=== PATIENT | female | born 1965 | race Caucasian/White ===

== ENCOUNTER → 2017-04-13 | Outpatient (CLI) | payer BC ==
[~2017-04-13] MED LIST: ASPI325T92 PO; ESZO3TAB28 PO; LEVE100020 PO; LEVO50TA PO; LOSA50TA6 PO; OMEP40CA6 PO; PROP40TA PO
== END ==
LOC: CFH 12:53
PROVIDERS: ATTEND Internal Medicine Cardiovascular Disease
DX: I11.9 Hypertensive heart disease without heart failure (principal)
CPT/HCPCS: 93306

== ENCOUNTER → 2017-08-14 | Outpatient (CLI) | payer BC ==
[~2017-08-14] MED LIST changes: +REGADENOSON 0.4 MG/5 ML SYRINGE ONE
== END | disposition home or self-care (01) ==
LOC: CFH 08:08
PROVIDERS: ATTEND Internal Medicine Cardiovascular Disease
DX: R07.89 Other chest pain (principal)
CPT/HCPCS: 78452; 93017; A9502; J2785

== ENCOUNTER 2018-10-28 08:29 | Outpatient (CLI) | payer BC | END 2018-10-28 23:59 | disposition home or self-care (01) | LOC: LAB 08:29 | PROVIDERS: ATTEND Family Medicine | DX: Z13.220 Encounter for screening for lipoid disorders (principal); Z13.1 Encounter for screening for diabetes mellitus; E03.9 Hypothyroidism, unspecified | CPT/HCPCS: 36415; 80053; 80061; 83036; 84439; 84443; 84481 ==

== ENCOUNTER → 2020-05-16 | Outpatient (CLI) | payer BC ==
[~2020-05-16] MED LIST changes: +ASPI81TA45 PO; +CHOL10003 PO; +LACO100T PO; +LEVA15HF4 INH; +LOSA50TA14 PO; -LOSA50TA6 PO; +MULT-449 PO; +OMEP40CA42 PO; -OMEP40CA6 PO; -REGADENOSON 0.4 MG/5 ML SYRINGE ONE; +SERT100T PO
[2020-05-16 16:06] LABS: ALANINE AMINOTRANSFERASE 43 U/L (12-78); ALBUMIN 4.1 g/dL (3.4-5.0); ANION GAP 7 mmol/L (5-15); CALCIUM 8.9 mg/dL (8.5-10.1); CHLORIDE 110 mmol/L (98-107); CREATININE 0.86 mg/dL (0.55-1.02)
[2020-05-16 16:09] LABS: ALKALINE PHOSPHATASE 95 U/L (45-117); BILIRUBIN,TOTAL 0.5 mg/dL (0.2-1.0); TOTAL PROTEIN 7.4 g/dL (6.4-8.2)
== END | disposition home or self-care (01) ==
LOC: STAR 12:18
PROVIDERS: ATTEND Surgery
DX: Z01.812 Encounter for preprocedural laboratory examination (principal); D48.1 Neoplasm of uncertain behavior of connective and other soft tissue
CPT/HCPCS: 36415; 80053

== ENCOUNTER 2020-05-24 06:07 | Day surgery (SDC) | payer BC ==
[~2020-05-24] VITALS: Ht 162.6 cm; Wt 91.6 kg
[2020-05-24] MEDS ORDERED: LACTATED RINGERS 1,000 ML IV SCH (06:30)
[2020-05-24] MEDS ORDERED: CHLORHEXIDINE 15 ML UDC MM ONE (06:30)
[2020-05-24] MEDS ORDERED: LIDOCAINE-MPF 1%, 2ML INFIL ONE (06:30)
[2020-05-24] MEDS ORDERED: BUPIVACAINE/PF-EPI 0.5% 1:200K ONE (06:45)
[2020-05-24 06:46] VITALS: BP 123/84
[2020-05-24] MEDS ORDERED: MIDAZOLAM 1 MG/ML, 2ML ONE (07:43)
[2020-05-24] MEDS ORDERED: FENTANYL PF 250 MCG/5ML ONE (07:43)
[2020-05-24] MEDS ORDERED: SCOPOLAMINE 1MG PATCH TD ONE (07:57)
[2020-05-24] MEDS ORDERED: PROPOFOL 10 MG/ML, 50ML ONE (07:58)
[2020-05-24] MEDS ORDERED: METOCLOPRAMIDE 5 MG/ML, 2ML ONE (07:58)
[2020-05-24] MEDS ORDERED: ONDANSETRON 2MG/ML, 2ML ONE (07:58)
[2020-05-24] MEDS ORDERED: CEFAZOLIN 1,000 MG ONE (07:58)
[2020-05-24] MEDS ORDERED: DEXAMETHASONE 4 MG/ML, 1ML ONE (07:58)
[2020-05-24] MEDS ORDERED: METHOCARBAMOL 1,000 MG in DEXTROSE 5% 100 ML IV PRN (09:00)
[2020-05-24] MEDS ORDERED: EPHEDRINE 50 MG/ML, 1ML IVPush PRN (09:00)
[2020-05-24] MEDS ORDERED: ACETAMINOPHEN 325 MG TABLET PO PRN (09:00)
[2020-05-24] MEDS ORDERED: OXYcodone 5 MG/5 ML ORAL.SOL UDC PO PRN (09:00)
[2020-05-24] MEDS ORDERED: PROMETHAZINE 25 MG/ML, 1ML IVPush PRN (09:00)
[2020-05-24] MEDS ORDERED: FENTANYL PF 100 MCG/2ML IV PRN (09:00)
[2020-05-24] MEDS ORDERED: hydrALAzine 20 MG/ML, 1ML IV PRN (09:00)
[2020-05-24] MEDS ORDERED: LABETALOL 5MG/ML, 20ML IV PRN (09:00)
[2020-05-24] MEDS ORDERED: MEPERIDINE/PF 25MG/0.5ML IVPush PRN (09:00)
[2020-05-24] MEDS ORDERED: HYDROmorphone 1 MG/ML, 1ML INJ IVPush PRN (09:00)
[2020-05-24] MEDS ORDERED: LORazepam 2 MG/ML, 1ML IVPush PRN (09:00)
[2020-05-24] MEDS ORDERED: ONDANSETRON 2MG/ML, 2ML IVPush PRN (09:00)
[2020-05-24] MEDS ORDERED: ONDA4TAB13 SL (09:08)
[2020-05-24] MEDS ORDERED: HYDR-1067 PO (09:08)
== END 2020-05-24 10:07 | disposition home or self-care (01) ==
LOC: OUT 06:07
PROVIDERS: ATTEND Surgery
DX: L72.3 Sebaceous cyst (principal); I10 Essential (primary) hypertension; J45.909 Unspecified asthma, uncomplicated; E03.9 Hypothyroidism, unspecified; G25.0 Essential tremor; Z20.822 Contact with and (suspected) exposure to COVID-19; Z79.899 Other long term (current) drug therapy; Z98.890 Other specified postprocedural states
CPT/HCPCS: 27043; 81025; 87635; 88304; J0690; J1100; J2250; J2405; J2704; J2765; J3010; J7120